=== PATIENT | male | born 1960 | race Caucasian/White ===

== ENCOUNTER 2020-03-04 23:03 | Emergency (ER) | payer OTHER ==
--- NOTE | 2020-03-04 23:27 | NUR ---
CALLED FOR TRIAGE. NO ANSWER
--- NOTE | 2020-03-04 23:39 | NUR ---
CALLED FOR TRIAGE. NO ANSWER
--- NOTE | 2020-03-04 23:49 | NUR ---
CALLED FOR TRIAGE , NO RESPONSE
== END 2020-03-04 23:50 | disposition home or self-care (01) ==
LOC: ER 23:04
DX: Z53.21 Procedure and treatment not carried out due to patient leaving prior to being seen by health care provider (principal)